=== PATIENT | male | born 1965 | race Caucasian/White ===

== ENCOUNTER 2018-01-30 23:32 | Emergency (ER) | payer BC ==
[~2018-01-30] VITALS: Ht 172.7 cm; Wt 55.8 kg
[2018-01-31 00:13] LABS: BASO % 0.4 % (0.0-1.0); EOS # 0.1 10*3/uL (0.0-0.4); EOS % 1.1 % (1.0-4.0); HEMATOCRIT 39.3 % (42.0-52.0); HEMOGLOBIN 13.3 g/dl (14.0-18.0); LYMPH # 2.6 10*3/uL (1.3-4.4); LYMPH % 23.8 % (27.0-41.0); MEAN CELL VOLUME 95.9 fl (80.0-94.0); MEAN CORPUSCULAR HGB 32.4 pg (27.0-31.0); MEAN CORPUSCULAR HGB CONC 33.8 g/dl (33.0-37.0); MEAN PLATELET VOLUME 10.2 fl (9.6-12.3); MONO # 0.7 10*3/uL (0.1-1.0); MONO % 6.4 % (3.0-9.0); NEUT # 7.4 10*3/uL (2.3-7.9); NEUT % 67.9 % (47.0-73.0); PLATELET COUNT AUTOMATED 155 10*3/uL (130-400); RED CELL DISTRI WIDTH 12.2 % (0-14.5); WHITE BLOOD COUNT 10.9 10*3/uL (4.8-10.8)
[2018-01-31 00:37] LABS: ALBUMIN 3.6 gm/dl (3.1-4.5); BUN 18 mg/dl (7-24); CHLORIDE 111 mmol/L (98-107); CREATININE 0.83 mg/dL (0.70-1.30); POTASSIUM 3.6 mmol/L (3.5-5.1); SGOT/AST 43 IU/L (3-35); SGPT/ALT 34 U/L (12-78); SODIUM 147 mmol/L (136-145); TOTAL PROTEIN 6.8 gm/dL (6.4-8.2)
[2018-01-31 00:52] LABS: ALKALINE PHOSPHATASE 97 U/L (45-117)
[2018-01-31 01:21] LABS: BILIRUBIN NEGATIVE (NEGATIVE); BLOOD NEGATIVE (NEGATIVE); CLARITY CLEAR (CLEAR); COLOR YELLOW (YELLOW); GLUCOSE NEGATIVE (NEGATIVE); KETONE TRACE (NEGATIVE); LEUKO ESTERASE NEGATIVE (NEGATIVE); NITRITE NEGATIVE (NEGATIVE); SPECIFIC GRAVITY >= 1.030 (1.005-1.030)
[2018-01-31 01:26] LABS: MUCOUS 1+
[2018-01-31 01:27] LABS: BACTERIA TRACE
[2018-01-31] MEDS ORDERED: SEPTDS PO (01:33)
[2018-01-31] MEDS ORDERED: CYCLOBENZAPRINE5 M3 PO (01:33)
== END 2018-01-31 01:57 | disposition home or self-care (01) ==
LOC: ED 23:32
PROVIDERS: Nurse Practitioner
DX: S93.402A Sprain of unspecified ligament of left ankle, initial encounter (principal); S20.419A Abrasion of unspecified back wall of thorax, initial encounter; S80.812A Abrasion, left lower leg, initial encounter; S80.811A Abrasion, right lower leg, initial encounter; S40.219A Abrasion of unspecified shoulder, initial encounter; Z91.030 Bee allergy status; Z88.1 Allergy status to other antibiotic agents; V80.010A Animal-rider injured by fall from or being thrown from horse in noncollision accident, initial encounter; Y93.52 Activity, horseback riding; Y92.89 Other specified places as the place of occurrence of the external cause; Y99.9 Unspecified external cause status

== ENCOUNTER 2019-03-15 11:21 | Emergency (ER) | payer BC ==
[~2019-03-15] VITALS: Ht 172.7 cm; Wt 54.4 kg
--- NOTE | ~2019-03-15 | EKG ---
[place], [place] ELECTROCARDIOGRAM REPORT NAME: ABDIFATAH ESPINOZA UNIT #: [id number] ROOM: DOCTOR: [facility] REPORT BIRTHDATE: [birth year] [facility] Test Date: 2019-03-15 Test Time: 11:35:19 Pat Name: ABDIFATAH ESPINOZA Department: ER Room: Gender: Biomedical Equipment Technician: EKG.MO : [id number] Requested By: ALESSIO ESPOSITO Order Number: [id number] Reading MD: Teo Montalvo MD Measurements Intervals [place] Rate: 88 P: 80 [place]: 136 QRS: 74 QRSD: 95 T: 25 QT: 351 QTc: 425 Interpretive Statements Sinus rhythm ST elev, consider normal early repol pattern vs injury Electronically Signed On 03-16-2019 13:25:15 PDT by Teo Montalvo MD CM:EKGRPT:ELECTROCARDIOGRAM REPORT [id number] ALESSIO [facility]ANLEY DRAFT REPORT ALESSIO ESPOSITO DO
[~2019-03-15 11:21] MED LIST: CYCLOBENZAPRINE5 M3 PO; SEPTDS PO
[2019-03-15 11:47] LABS: BASO # 0.1 10*3/uL (0.0-0.1); BASO % 0.5 % (0.0-1.0); EOS # 0.1 10*3/uL (0.0-0.4); EOS % 0.7 % (1.0-4.0); HEMATOCRIT 39.9 % (42.0-52.0); HEMOGLOBIN 14.1 g/dl (14.0-18.0); LYMPH # 1.7 10*3/uL (1.3-4.4); LYMPH % 16.3 % (27.0-41.0); MEAN CELL VOLUME 92.4 fl (80.0-94.0); MEAN CORPUSCULAR HGB 32.6 pg (27.0-31.0); MEAN CORPUSCULAR HGB CONC 35.3 g/dl (33.0-37.0); MEAN PLATELET VOLUME 10.5 fl (9.6-12.3); MONO # 0.5 10*3/uL (0.1-1.0); MONO % 4.7 % (3.0-9.0); NEUT # 8.1 10*3/uL (2.3-7.9); NEUT % 77.6 % (47.0-73.0); PLATELET COUNT AUTOMATED 201 10*3/uL (130-400); RED BLOOD COUNT 4.32 10*6/uL (4.50-5.90); RED CELL DISTRI WIDTH 11.9 % (0-14.5); WHITE BLOOD COUNT 10.4 10*3/uL (4.8-10.8)
[2019-03-15 12:01] LABS: ALBUMIN 3.8 gm/dl (3.1-4.5); BUN 15 mg/dl (7-24); CHLORIDE 111 mmol/L (98-107); CREATININE 1.13 mg/dL (0.70-1.30); POTASSIUM 3.7 mmol/L (3.5-5.1); SGOT/AST 23 IU/L (3-35); SGPT/ALT 26 U/L (12-78); SODIUM 142 mmol/L (136-145); TOTAL PROTEIN 7.3 gm/dL (6.4-8.2)
[2019-03-15 12:02] LABS: ALKALINE PHOSPHATASE 89 U/L (45-117)
[2019-03-15] MEDS ORDERED: EPIPEN 2-P0.3 MG/0.3 IM (14:51)
[2019-03-15] MEDS ORDERED: PREDNISONE10 MG PO (14:51)
== END 2019-03-15 15:17 | disposition home or self-care (01) ==
LOC: ED 11:21
PROVIDERS: Internal Medicine
DX: T63.441A Toxic effect of venom of bees, accidental (unintentional), initial encounter (principal); Z91.030 Bee allergy status; Z88.1 Allergy status to other antibiotic agents; Z79.2 Long term (current) use of antibiotics; Y92.89 Other specified places as the place of occurrence of the external cause

== ENCOUNTER 2019-04-04 12:00 | Emergency (ER) | payer SELFPAY ==
[~2019-04-04 12:00] MED LIST changes: +EPIPEN 2-P0.3 MG/0.3 IM; +PREDNISONE10 MG PO
== END 2019-04-04 13:55 | disposition short-term general hospital (02) ==
LOC: ED 12:00
DX: T26.12XA Burn of cornea and conjunctival sac, left eye, initial encounter (principal); F17.200 Nicotine dependence, unspecified, uncomplicated; Z88.1 Allergy status to other antibiotic agents; Z91.030 Bee allergy status; X08.8XXA Exposure to other specified smoke, fire and flames, initial encounter; Y93.89 Activity, other specified; Y92.89 Other specified places as the place of occurrence of the external cause; Y99.8 Other external cause status

== ENCOUNTER 2020-03-12 18:50 | Emergency (ER) | payer SELFPAY ==
[~2020-03-12] VITALS: Wt 63.0 kg
[2020-03-12 19:36] LABS: BASO % 0.5 % (0.0-1.0); EOS # 0.1 10*3/uL (0.0-0.4); EOS % 2.4 % (1.0-4.0); HEMATOCRIT 39.8 % (42.0-52.0); LYMPH # 2.1 10*3/uL (1.3-4.4); LYMPH % 35.2 % (27.0-41.0); MEAN CELL VOLUME 90.2 fl (80.0-94.0); MEAN CORPUSCULAR HGB 31.3 pg (27.0-31.0); MEAN CORPUSCULAR HGB CONC 34.7 g/dl (33.0-37.0); MEAN PLATELET VOLUME 10.5 fl (9.6-12.3); MONO # 0.4 10*3/uL (0.1-1.0); MONO % 7.1 % (3.0-9.0); NEUT # 3.2 10*3/uL (2.3-7.9); NEUT % 54.5 % (47.0-73.0); PLATELET COUNT AUTOMATED 163 10*3/uL (130-400); RED BLOOD COUNT 4.41 10*6/uL (4.50-5.90); RED CELL DISTRI WIDTH 12.4 % (0-14.5); WHITE BLOOD COUNT 5.9 10*3/uL (4.8-10.8)
[2020-03-12 19:54] LABS: ALBUMIN 3.5 gm/dl (3.1-4.5); ALKALINE PHOSPHATASE 85 U/L (45-117); BUN 11 mg/dl (7-24); CHLORIDE 111 mmol/L (98-107); CREATININE 0.83 mg/dL (0.70-1.30); POTASSIUM 3.4 mmol/L (3.5-5.1); SGOT/AST 31 IU/L (3-35); SGPT/ALT 31 U/L (12-78); SODIUM 142 mmol/L (136-145); TROPONIN I < 0.015 ng/ml (<0.045)
== END 2020-03-12 21:37 | disposition home or self-care (01) ==
LOC: ED 18:50
PROVIDERS: Emergency Medicine
DX: T63.441A Toxic effect of venom of bees, accidental (unintentional), initial encounter (principal); Z91.030 Bee allergy status; Z88.1 Allergy status to other antibiotic agents; Y92.89 Other specified places as the place of occurrence of the external cause

== ENCOUNTER 2023-01-10 07:58 | Emergency (ER) | payer SELFPAY ==
[~2023-01-10] VITALS: Ht 172.7 cm; Wt 55.8 kg
== END 2023-01-10 11:04 | disposition short-term general hospital (02) ==
LOC: ED 07:58
DX: S62.630B Displaced fracture of distal phalanx of right index finger, initial encounter for open fracture (principal); Z91.030 Bee allergy status; Z88.1 Allergy status to other antibiotic agents; Z79.899 Other long term (current) drug therapy; Z79.2 Long term (current) use of antibiotics; W55.12XA Struck by horse, initial encounter; Y93.89 Activity, other specified; Y92.89 Other specified places as the place of occurrence of the external cause; Y99.8 Other external cause status